=== PATIENT | female | born 1945 | race Caucasian/White ===

== ENCOUNTER 2024-03-31 08:24 | Outpatient (AMB) | payer MEDICARE, SELFPAY ==
--- NOTE | 2024-03-31 09:09 | AM.OFFWIN_ITS ---
Intake Vital Signs 03/31/24 09:21 Height 4 ft 11 in Weight 64.864 kg BMI 28.9 BP 118/80 Blood Pressure Location Lt brachial Position Sitting Pulse 73 Pulse Source Pulse Oximeter Temp 97.9 F Temp Source Temporal Artery Scan Pulse Oximetry (%) 95 Oxygen Delivery Method Room Air Intake Visit Reasons: EP cough sore throat body aches Intake Note: pt is here today for cough sore throat body aches started 3 days ago Patient Tobacco Use Status: Never used Tobacco Allergies Sulfa (Sulfonamide Antibiotics) Allergy (Mild, Verified 03/31/24 09:26) tight and stiff Do you need a note to return to daycare/school/sports/work: No HPI EP cough sore throat body aches HPI Details Patient presents with 3 days of dry cough, nasal congestion, sore throat, body aches. She has used [id number] cough and cold remedies with some relief. She notes the cough at night is most bothersome. No known sick contacts. She denies GI symptoms, chest pain, shortness of breath. [facility] Social History Patient Tobacco Use Status: Never used Tobacco Review of Systems Const Reports as per HPI Eyes Reports no additional complaints ENT Reports no additional complaints and Reports as per HPI Card Reports as per HPI and Reports no additional complaints Resp Reports as per HPI and Reports no additional complaints GI Reports as per HPI and Reports no additional complaints Skin/Breast Reports as per HPI Neuro Reports no additional complaints Physical Exam Vital Signs: Last Vital Signs Temp 97.9 F 03/31/24 09:21 Pulse 73 03/31/24 09:21 BP 118/80 03/31/24 09:21 Pulse Ox 95 03/31/24 09:21 Oxygen Delivery Method Room Air 03/31/24 09:21 BMI result Body Mass Index 28.9 Const General: cooperative, comfortable and no acute distress Orientation/consciousness: patient oriented x3 Resp Effort & Inspection: normal respiratory effort Auscultation: clear to auscultation bilaterally Cardio Rate: regular rate Rhythm: regular rhythm Heart sounds: S1 normal heart sound present and S2 normal heart sound present Neuro General: patient oriented x3 Extrem General: Yes no pedal edema Results AMB Rapid Strep AMB Rapid Strep Negative Last Edit by DEMIAN Giron on 03/31/24 09:4 1 Results Reviewed Results Reviewed: Laboratory Last Values Strep Scn [facility] Clinic Negative 03/31/24 09:40 Assessment & Plan Assessment & Plan (1) Viral illness: Code(s): B34.9 - Viral infection, unspecified Plan: Can use Tessalon Perles for cough. Continue self care. Viral swab collected will report results as available however at this point patient is on day 4 and Tamiflu or Paxlovid or not an option if positive but good information for possible contacts and monitoring. Return to clinic if symptoms do not improve over the next 3-5 days or worsen in any way. Orders: Orders AMB Rapid Strep Screen Today Z13.9 - Encounter for screening, unspecified SARS-CoV2/FLU/RSV Today B34.9 - Viral infection, unspecified Medications: New benzonatate 100 mg PO BID PRN 14 caps 0RF cough Coding Level of Care Code Est Pt Level 3 (98268) Diagnoses Viral illness B34.9
[2024-03-31 09:21] VITALS: BP 118/80; PULSE 73; TEMP 36.6; O2SAT 95; BMI 28.9
== END 2024-03-31 09:48 | disposition home or self-care (01) ==
PROVIDERS: PCP Internal Medicine; Visit Provider Physician Assistant
DX: B34.9 Viral infection, unspecified (principal); Z13.9 Encounter for screening, unspecified
CPT/HCPCS: 87880; 99213

== ENCOUNTER 2024-03-31 13:10 | Outpatient (REF) | payer MEDICARE, SELFPAY ==
[2024-03-31 14:10] LABS: Influenza A PCR NEGATIVE (Negative); Influenza B PCR NEGATIVE (Negative); Resp Syncy Virus RNA Qual PCR NEGATIVE (Negative); SARS COV2 PCR INHOUSE POSITIVE (Negative)
== END 2024-03-31 13:11 | disposition home or self-care (01) ==
LOC: HO.LNP 13:10
PROVIDERS: Visit Provider Physician Assistant
DX: B34.9 Viral infection, unspecified (principal)
CPT/HCPCS: 0241U